=== PATIENT | female | born 1980 | race African-American/Black ===

== ENCOUNTER 2025-02-01 16:34 | Inpatient (IN) | payer OTHER ==
[~2025-02-01] VITALS: Ht 160 cm; Wt 55.4 kg
[2025-02-01 16:42] VITALS: O2SAT 98
[2025-02-01 17:33] LABS: BASOPHILS % 0.6 % (0.0-2.0); EOSINOPHILS % 0.0 % (0.0-5.0); LYMPHOCYTES % 10.2 % (20.0-50.0); MEAN PLATELET VOLUME 9.0 fl (7.4-10.4); MONOCYTES % 3.8 % (2.0-8.0); NEUTROPHILS % 85.4 % (40.0-76.0); PLATELET 295 x1000/uL (130-400); RED BLOOD CELL COUNT 2.95 mill/uL (4.2-5.4); RED CELL DISTRIBUTION WIDTH 22.6 % (11.6-14.6)
[2025-02-01 17:37] LABS: HEMOGLOBIN. 6.0 g/dL (12.0-16.0)
[2025-02-01 17:39] LABS: ADD RBC MORPHOLOGY YES; HEMATOCRIT. 20.4 % (36.0-48.0)
[2025-02-01 17:44] LABS: HCG SCREEN NEGATIVE
[2025-02-01 17:52] LABS: INR 1.0
[2025-02-01 17:56] LABS: CREATININE 0.9 mg/dL (0.6-1.0); UREA NITROGEN BLOOD 6 mg/dL (9-23)
[2025-02-01 17:59] LABS: PLATELET ESTIMATE NORMAL
[2025-02-01 18:06] LABS: B-HCG QUANTITATIVE < 1 mIU/mL (<6)
[2025-02-01] MEDS: MEDROXYPROGESTERONE ACETATE 150MG/ML VIAL IM ONE (20:56)
[2025-02-01] MEDS: LACTATED RINGERS 1,000 ML IV ONE (21:22)
[2025-02-01] MEDS ORDERED: TRANEXAMIC ACID 1,000MG/10ML IV SCH (21:45)
[2025-02-01 21:55] LABS: CLARITY URINE TURBID (CLEAR); COLOR URINE RED (YELLOW); GLUCOSE URINE TRACE (NEGATIVE); KETONES URINE NEGATIVE (NEGATIVE); LEUKOCYTE ESTERASE URINE 2+ (NEGATIVE); NITRITE URINE POSITIVE (NEGATIVE); PH URINE 6.5 (4.5-8.0); PROTEIN URINE 3+ (NEGATIVE); SPECIFIC GRAVITY URINE 1.043 (1.005-1.030); UROBILINOGEN URINE 0.2 E.U./dL (0.2-1.0)
[2025-02-01 21:55] LABS: LACTATE DEHYDROGENASE 469 IU/L (120-246)
[2025-02-01] MEDS: SODIUM CHLORIDE 0.9% 1,000 ML IV SCH (21:58)
[2025-02-01 22:00] LABS: FOLIC ACID (FOLATE) SERUM > 20.00 ng/mL (>5.38); VITAMIN B12 SERUM 1139 pg/mL (211-911)
[2025-02-01] MEDS ORDERED: ACETAMINOPHEN 325MG TABLET PO PRN ×2 (22:00)
[2025-02-01] MEDS ORDERED: CLONIDINE 0.1MG TABLET PO PRN (22:00)
[2025-02-01] MEDS ORDERED: GUAIFENESIN 200MG/10ML SUGAR FREE UDC PO PRN (22:00)
[2025-02-01] MEDS ORDERED: DOCUSATE SODIUM 100MG CAPSULE PO PRN (22:00)
[2025-02-01] MEDS ORDERED: MAGNESIUM/ALUMINUM HYDROXIDE/SIMETHICONE 30ML UDC PO PRN (22:00)
[2025-02-01] MEDS ORDERED: IPRATROPIUM/ALBUTEROL 0.5-3(2.5)MG/3ML NEB HHN PRN (22:00)
[2025-02-01] MEDS ORDERED: ONDANSETRON HCL 4MG/2ML INJ IV PRN (22:00)
[2025-02-01 22:15] VITALS: BP 133/63; PULSE 112; RESP 18; TEMP 37.2252
[2025-02-01 22:30] VITALS: BP 123/86; PULSE 121; RESP 17; TEMP 37.2252
[2025-02-01 22:38] LABS: BACTERIA URINE 3+; SQUAMOUS EPITHELIAL CELL URINE FEW /lpf (RARE/1+); WBC URINE 15-25 /hpf (0-2)
[2025-02-01 22:39] LABS: OCCULT BLOOD URINE 3+ (NEGATIVE); RBC URINE 15-25 /hpf (0-2)
[2025-02-01 23:30] VITALS: BP 127/80; PULSE 109; RESP 15; TEMP 37.00296
[2025-02-02] VITALS (14 sets, daily range): BP systolic 95–144; BP diastolic 54–87; PULSE 89–112; RESP 8–25; TEMP 36.6–37.55856; O2SAT 99–100
[2025-02-02 00:17] LABS: TROPONIN I HIGH SENSITIVITY 16 ng/L (3.0-34)
[2025-02-02] MEDS: MULTIVITAMINS,THER W-MINERALS TABLET PO SCH (08:37)
[2025-02-02] MEDS: PANTOPRAZOLE SODIUM 40 MG/VIAL IV SCH (08:37)
[2025-02-02] MEDS: FERROUS SULFATE 325MG TABLET PO SCH (08:37)
[2025-02-02] MEDS ORDERED: FERR142T14 (08:55)
[2025-02-02] MEDS ORDERED: TRAN650T5 PO (08:55)
[2025-02-02] MEDS ORDERED: ASCO500C14 PO (09:01)
[2025-02-02] MEDS ORDERED: BIOT5TAB PO (09:01)
[2025-02-02] MEDS ORDERED: ELDE350C PO (09:05)
[2025-02-02 09:08] LABS: BASOPHILS % 0.9 % (0.0-2.0); EOSINOPHILS % 0.5 % (0.0-5.0); HEMATOCRIT. 27.9 % (36.0-48.0); HEMOGLOBIN. 9.1 g/dL (12.0-16.0); LYMPHOCYTES % 17.7 % (20.0-50.0); MEAN PLATELET VOLUME 9.0 fl (7.4-10.4); MONOCYTES % 8.0 % (2.0-8.0); NEUTROPHILS % 72.9 % (40.0-76.0); PLATELET 191 x1000/uL (130-400); RED BLOOD CELL COUNT 3.78 mill/uL (4.2-5.4); RED CELL DISTRIBUTION WIDTH 23.1 % (11.6-14.6)
[2025-02-02 09:21] LABS: CREATININE 0.8 mg/dL (0.6-1.0)
[2025-02-02 09:22] LABS: LDL CHOLESTEROL 49 mg/dL (5-100); PROTEIN TOTAL 5.9 g/dL (6.0-8.3); TRIGLYCERIDE 58 mg/dL (0-150); TROPONIN I HIGH SENSITIVITY 7 ng/L (3.0-34); UREA NITROGEN BLOOD < 5 mg/dL (9-23)
[2025-02-02 09:23] LABS: ASPARTATE AMINOTRANSFERASE 20 IU/L (<34)
[2025-02-02 09:24] LABS: BILIRUBIN DIRECT 0.4 mg/dL (<=3.0); BILIRUBIN TOTAL 1.1 mg/dL (0.1-1.0)
[2025-02-02 09:27] LABS: T4 FREE 1.30 ng/dL (0.89-1.76)
[2025-02-02] MEDS: CEFTRIAXONE 2GM/50ML 50 ML IV SCH (10:56)
[2025-02-02 12:40] LABS: PLATELET 203 x1000/uL (130-400); RED BLOOD CELL COUNT 3.51 mill/uL (4.2-5.4); RED CELL DISTRIBUTION WIDTH 22.7 % (11.6-14.6)
[2025-02-02] MEDS ORDERED: FERR325T6 MT (15:39)
== END 2025-02-02 18:35 | disposition home or self-care (01) | DRG 760 ==
LOC: ER 16:34 → 5EST 19:52 → EDBEDREQ 20:07 → EDBEDREQTM 20:07 → ENRESERV 20:59 → EDBEDREQSVC 22:29 → ENRESERV 22:59
PROVIDERS: ADMIT Internal Medicine; ATTEND Internal Medicine
PROC: 30233N1 Transfusion of Nonautologous Red Blood Cells into Peripheral Vein, Percutaneous Approach (ICD-10-PCS; principal; 2025-02-01)
DX: D25.9 Leiomyoma of uterus, unspecified (principal); D62 Acute posthemorrhagic anemia; N39.0 Urinary tract infection, site not specified; N92.0 Excessive and frequent menstruation with regular cycle; R73.9 Hyperglycemia, unspecified
CPT/HCPCS: 36415; 80048; 80061; 80076; 81003; 82550; 82607; 82728; 82746; 83036; 83540; 83550; 83605; 83615; 84145; 84439; 84443; 84484; 84702; 84703; 85025; 85027; 85044; 85247; 85384; 86850; 86900; 86920; 93970; 99285; J0696; J1050; J2470; P9016